=== PATIENT | female | born 1975 | race Caucasian/White ===

== ENCOUNTER 2017-04-24 11:59 | Emergency (ER) | payer MEDICAID ==
[~2017-04-24] VITALS: Ht 175.3 cm; Wt 99.8 kg
[2017-04-24 12:03] VITALS: BP_SYST 134
== END 2017-04-24 14:25 | disposition home or self-care (01) ==
LOC: SED 11:59
DX: M79.662 Pain in left lower leg (principal); M79.661 Pain in right lower leg; R03.0 Elevated blood-pressure reading, without diagnosis of hypertension; F17.200 Nicotine dependence, unspecified, uncomplicated; Z86.718 Personal history of other venous thrombosis and embolism
CPT/HCPCS: 81025; 93970; 99284